=== PATIENT | female | born 1990 | race Caucasian/White ===

== ENCOUNTER 2021-12-11 14:40 | Emergency (ER) | payer MEDICAID, SELFPAY ==
[2021-12-11 15:50] VITALS: BP 127/92; PULSE 110; RESP 18; TEMP 36.7; O2SAT 97; BMI 30.4
--- NOTE | 2021-12-11 16:05 | XR_ITS ---
FINAL REPORT CLINICAL HISTORY: LEFT SIDED BACK PAIN FINDINGS: LUMBAR SPINE Three views were obtained. There is no acute fracture. There is no malalignment. The disc spaces are preserved. There is no soft tissue abnormality. IMPRESSION: No acute bony abnormality. Reviewed, Interpreted and Dictated by Joon Marin MD Transcribed by Marcie Griffin Authenticated and [facility]
--- NOTE | 2021-12-11 16:19 | HMH.EDUTC ---
[facility] [place] Clinical Impression: Radiculopathy due to lumbar intervertebral disc disorder Low back pain Qualifiers: Chronicity: acute Back pain laterality: bilateral Sciatica presence: with sciatica Sciatica laterality: bilateral sciatica Qualified Code(s): M54.42 - Lumbago with sciatica, left side Disposition: Home, Self-Care Condition on Discharge: Good Instructions: Low Back Pain, DI for Low Back Pain, DI for Lumbar Radiculopathy Additional Instructions: Go home and rest. It would be best if you rested tomorrow too. No heavy lifting. No twisting. Take the oral medications as directed. The muscle relaxer (cyclobenzaprine--Flexeril) will make you drowsy, so don't drive or operate heavy machinery after taking it. Don't start the oral steroids (medrol dose pack) until tomorrow, since you had the shots in here today. Follow up with your regular doctor. GO TO THE ER FOR ANY WORSENING SYMPTOMS OR CONCERN, ESPECIALLY BOWEL OR BLADDER ISSUES, SADDLE AREA NUMBNESS, FEVER, ETC Prescriptions: Cyclobenzaprine HCl [Cyclobenzaprine 10mg Tab] 10 mg PO BIDP PRN #20 tab PRN Reason: Muscle Spasm Transmission Status: Received by [facility] #[id number] methylPREDNISolone [Medrol] 4 mg PO DIRECTED 6 Days #21 packet Transmission Status: Received by [facility] #[id number] Referrals: Rajni Ortiz APRN [Primary Care Provider] - Forms: Work/School Release Time of Disposition: 17:11 Medical Decision Making - Medical Records Medical records reviewed: No: I reviewed the patient's medical records. - Cesar Inquiry Pt receiving controlled substance: No Vital Signs: 12/11/21 15:50 12/11/21 17:03 Temperature 98.1 F 98.1 F Temperature Source Oral Pulse Rate 110 H Pulse Rate [Left Brachial] 110 H Respiratory Rate 18 18 Blood Pressure 127/92 H Blood Pressure [Left Arm] 127/92 H Blood Pressure Mean [Left Arm] 103 Blood Pressure Source [Left Arm] Automatic Cuff Blood Pressure Position [Left Arm] Sitting 02 Sat by Pulse Oximetry 97 Oxygen Delivery Method Room Air - Lab Data Lab Results 12/11/21 16:05: Urine Color Yellow, Urine Appearance Clear, Urine pH 5.5, Ur Specific [place] 1.020, Urine Protein Negative, Urine Glucose (UA) Negative, Urine Ketones Negative, Urine Blood Negative, Urine Nitrate Negative, Urine Bilirubin Negative, Urine Urobilinogen 0.2, Ur Leukocyte Esterase Trace Orders (Tests/Meds): ED MEDICATIONS Discontinued Medications Generic Name Dose Route Start Last Admin Trade Name Marcie PRN Reason Stop Dose Admin Ketorolac Tromethamine 60 mg 12/11/21 16:54 12/11/21 17:00 Ketorolac 60mg/2ml Vial IM 12/11/21 16:55 60 mg ONCE ONE Administration Methylprednisolone Sodium Succinate 125 mg 12/11/21 16:54 12/11/21 17:00 Methylprednisolone Sod Succ 125mg Vial IM 12/11/21 16:55 125 mg ONCE ONE [place] [facility] [place] - General Stated complaint: back pain Time Seen by Provider: 12/11/21 16:19 Mode of Arrival: Ambulatory Source of Information: Patient Limitations: No Limitations Description of Symptoms (Recalled from Triage Doc. by RN): PATIENT STATES SHE HAS BEEN HAVING LOWER BACK PAIN X 1 MONTH. SHE WAS SEEN AT ANOTHER ER A MONTH AGO AND TREATED WITH STEROIDS. SHE STATES SHE BENT OVER LAST NIGHT AND FELT A POP TO HER LEFT LOWER BACK AND NOW HER PAIN IS WORSE. HEENT Symptoms (Recalled from RN notes): No Resp Symptoms (Recalled from RN notes): No Skin Symptoms (Recalled from RN notes): No MS Symptoms (Recalled from RN notes): Yes Functional Status (Recalled from RN notes): WNL - History of Present Illness Provider Complaint: She has had trouble with low back pain off and on for the past 1 month. She denies any known injury. 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 She was treated for this 1 month ago with medications that she cannot remember the name of a [facility]. She states that she did get better, but her symptoms came
[2021-12-11 16:33] LABS: Apearance,Urine Clear (Clear); Bilirubin,Urine Negative (Negative); Blood, Urine Negative (Negative); Color,Urine Yellow (Yellow); Glucose,Urine (UA) Negative (Negative); Ketones,Urine Negative (Negative); PH,Urine 5.5 (5.0-8.5); Protein,Urine Negative (Negative); UTC Leukocyte Esterase,Urine Trace (Negative); UTC Nitrate,Urine Negative (Negative); Urobilinogen,Urine 0.2 EU/dl (0.2)
[2021-12-11 17:03] VITALS: BP 127/92; PULSE 110; RESP 18; TEMP 36.7; O2SAT 97
== END 2021-12-11 17:19 | disposition home or self-care (01) ==
PROVIDERS: Emergency Provider Nurse Practitioner Family; PCP Nurse Practitioner Family
DX: M51.16 Intervertebral disc disorders with radiculopathy, lumbar region (principal)
CPT/HCPCS: 72100; 81003; 99212; G0463